=== PATIENT | male | born 1950 | race Caucasian/White ===

== ENCOUNTER 2017-04-18 10:16 | Outpatient (CLI) | payer OTHER ==
[2017-04-18 11:30] LABS: #Eosinphils 0.2 thou/uL (0.0-0.7); #Lymphocytes 1.7 thou/uL (1.20-3.40); #Monocytes 0.5 thou/uL (0.11-0.59); #Neutrophils 3.2 thou/uL (1.40-6.50); %Basophils 0.7 % (0.0-1.0); %Eosinophils 3.3 % (0.0-10.0); %Lymphocytes 30.4 % (21.0-51.0); %Monocytes 8.5 % (0.0-10.0); Hematocrit 48.1 % (42.0-52.0); Mean Platelet Volume 7.1 fL (7.4-10.4); White Blood Cell (WBC) Count 5.5 thou/uL (4.8-10.8)
[2017-04-18 11:36] LABS: Prothrombin Time 14.4 SEC (12.0-14.7)
[2017-04-18 12:01] LABS: Anion Gap 11 mmol/L (10-20); BUN (Urea Nitrogen) 18 mg/dL (8.4-25.7); Calc. Creatinine Clearance 0 mL/min (70-130); Calcium 9.6 mg/dL (7.8-10.44); Carbon Dioxide 27 mmol/L (23-31); Chloride 103 mmol/L (98-107); Estimated GFR-MDRD 77
--- NOTE | 2017-04-22 13:20 | EKG ---
Test Reason : Blood Pressure : / mmHG Vent. Rate : 059 BPM Atrial Rate : 059 BPM P-R Int : 188 ms QRS Dur : 106 ms QT Int : 434 ms P-R-T Axes : 040 010 004 degrees QTc Int : 429 ms Sinus bradycardia Septal infarct , age undetermined Nonspecific T wave abnormality Abnormal ECG Confirmed by ROSA BENTLEY ([id number]) on 04/22/2017 1:19:45 PM Referred By: IERO Confirmed By:ROSA BENTLEY
== END 2017-04-18 10:17 | disposition home or self-care (01) ==
LOC: LABBT 10:16
PROVIDERS: ATTEND Orthopaedic Surgery
DX: Z01.818 Encounter for other preprocedural examination (principal); M75.102 Unspecified rotator cuff tear or rupture of left shoulder, not specified as traumatic
CPT/HCPCS: 80048; 85025; 85610; 93005; 93010

== ENCOUNTER 2018-04-01 07:58 | Outpatient (CLI) | payer OTHER | END 2018-04-01 07:59 | disposition home or self-care (01) | PROVIDERS: ATTEND Family Medicine | DX: Z47.89 Encounter for other orthopedic aftercare (principal); Z98.890 Other specified postprocedural states | CPT/HCPCS: G8978-GP-CI; G8979-GP-CI; G8980-GP-CI ==